=== PATIENT | female | born 1935 | race Caucasian/White ===

== ENCOUNTER 2018-07-05 13:43 | Emergency (ER) | payer MEDICARE ==
--- NOTE | 2018-07-05 16:09 | RAD ---
RADIOGRAPH CHEST 2 VIEWS: 07/05/18 HISTORY: 82-year-old female with cough. FINDINGS: The thoracic aorta is tortuous and ectatic. There is no evidence of air space density, pneumothorax, or pulmonary edema. There is no cardiomegaly or pleural effusion. IMPRESSION: 1) No acute cardiopulmonary findings. 2) Ectasia of thoracic aorta. darryl [] POS: [facility]
== END 2018-07-05 15:14 | disposition home or self-care (01) ==
LOC: NAV ERS 13:43
DX: J20.9 Acute bronchitis, unspecified (principal); E78.5 Hyperlipidemia, unspecified; I10 Essential (primary) hypertension
CPT/HCPCS: 71046

== ENCOUNTER 2022-09-03 13:00 | Emergency (ER) | payer MEDICARE ==
[2022-09-03] MEDS ORDERED: methylPREDNISolone Acetate 40 mg/ml Vial ONE ×2 (13:38→14:04)
[2022-09-03 13:59] LABS: #Eosinphils 0.1 thou/uL (0.0-0.7); #Monocytes 0.7 thou/uL (0.11-0.59); #Neutrophils 4.6 thou/uL (1.40-6.50); %Basophils 0.5 % (0.0-1.0); %Eosinophils 1.2 % (0.0-10.0); %Lymphocytes 35.3 % (21.0-51.0); %Monocytes 7.9 % (0.0-10.0); %Neutrophils 55.1 % (42.0-75.0); Hemoglobin 14.1 g/dL (12.0-16.0); Mean Corpuscular HGB CONC 32.1 g/dL (32.0-36.0); Mean Corpuscular Hemoglobin 29.2 pg (27.0-31.0); Platelet Count 148 10x3/uL (130-400); RBC Distribution Width 12.5 % (11.5-14.5); Red Blood Cell (RBC) Count 4.84 mill/uL (4.20-5.40); White Blood Cell (WBC) Count 8.4 10x3/uL (4.8-10.8)
[2022-09-03 14:21] LABS: Anion Gap 14 mmol/L (10-20); BUN (Urea Nitrogen) 15 mg/dL (9.8-20.1); Calc. Creatinine Clearance 0 mL/min (70-130); Calcium 9.9 mg/dL (7.8-10.44); Carbon Dioxide 24 mmol/L (23-31); Chloride 105 mmol/L (98-107); Estimated GFR 68; Glucose 129 mg/dL (83-110); Potassium 4.2 mmol/L (3.5-5.1); Sodium 139 mmol/L (136-145)
== END 2022-09-03 15:15 | disposition home or self-care (01) ==
LOC: NAV ERS 13:00
DX: M19.031 Primary osteoarthritis, right wrist (principal); I10 Essential (primary) hypertension; E78.00 Pure hypercholesterolemia, unspecified; E11.40 Type 2 diabetes mellitus with diabetic neuropathy, unspecified; Z79.84 Long term (current) use of oral hypoglycemic drugs; Z79.899 Other long term (current) drug therapy
CPT/HCPCS: 80048; 84550; 85025; 96372; J1030

== ENCOUNTER 2022-09-19 17:56 | Emergency (ER) | payer OTHER, MEDICARE ==
[2022-09-19 18:44] LABS: #Basophils 0.1 thou/uL (0.0-0.2); #Eosinphils 0.1 thou/uL (0.0-0.7); #Lymphocytes 2.8 thou/uL (1.20-3.40); #Monocytes 0.6 thou/uL (0.11-0.59); #Neutrophils 7.1 thou/uL (1.40-6.50); %Basophils 0.9 % (0.0-1.0); %Eosinophils 0.8 % (0.0-10.0); %Monocytes 5.8 % (0.0-10.0); %Neutrophils 66.6 % (42.0-75.0); Hemoglobin 14.3 g/dL (12.0-16.0); Mean Corpuscular HGB CONC 31.8 g/dL (32.0-36.0); Mean Corpuscular Hemoglobin 29.6 pg (27.0-31.0); Mean Corpuscular Volume 93.1 fl (78.0-98.0); Mean Platelet Volume 14.6 fL (7.4-10.4); Platelet Count 146 10x3/uL (130-400); RBC Distribution Width 13.1 % (11.5-14.5); Red Blood Cell (RBC) Count 4.84 mill/uL (4.20-5.40); White Blood Cell (WBC) Count 10.6 10x3/uL (4.8-10.8)
[2022-09-19] MEDS ORDERED: HYDROcodone/Acetaminophen 5/325 mg Tablet ONE (18:58)
[2022-09-19] MEDS ORDERED: Boostrix 0.5 ML (Tdap) VIAL (>/=7 yrs of age) ONE (18:58)
[2022-09-19 19:01] LABS: Anion Gap 17 mmol/L (10-20); BUN (Urea Nitrogen) 16 mg/dL (9.8-20.1); Calc. Creatinine Clearance 0 mL/min (70-130); Calcium 10.2 mg/dL (7.8-10.44); Carbon Dioxide 27 mmol/L (23-31); Chloride 103 mmol/L (98-107); Estimated GFR 68; Glucose 172 mg/dL (83-110); Magnesium 1.9 mg/dL (1.6-2.6); Potassium 4.5 mmol/L (3.5-5.1); Sodium 142 mmol/L (136-145)
[2022-09-19 19:25] LABS: Bilirubin Negative (Negative); Blood, Urine Negative (Negative); Clarity Clear (Clear); Glucose, Urine (Dipstick) Negative (Negative); Ketone, Urine 40 mg/dL (Negative); Leukocyte Trace (Negative); Nitrite Negative (Negative); Protein, Urine (Dipstick) Negative (Neg-Trace); Urobilinogen 0.2 mg/dL (Less than 2)
[2022-09-19 19:36] LABS: Squamous Epithelial 0-3 HPF (0-3); WBC/HPF 0-3 HPF (0-3)
== END 2022-09-19 20:14 | disposition home or self-care (01) ==
LOC: NAV ERS 17:56
DX: S06.9X1A Unspecified intracranial injury with loss of consciousness of 30 minutes or less, initial encounter (principal); S00.03XA Contusion of scalp, initial encounter; I10 Essential (primary) hypertension; E78.00 Pure hypercholesterolemia, unspecified; E11.40 Type 2 diabetes mellitus with diabetic neuropathy, unspecified; W18.00XA Striking against unspecified object with subsequent fall, initial encounter; Y92.512 Supermarket, store or market as the place of occurrence of the external cause; Z85.3 Personal history of malignant neoplasm of breast; Z79.84 Long term (current) use of oral hypoglycemic drugs; Z79.899 Other long term (current) drug therapy
CPT/HCPCS: 70450; 72125; 80048; 81003; 81015; 83735; 84484; 85025; 90471; 90715; 93005

== ENCOUNTER 2022-10-11 19:55 | Emergency (ER) | payer MEDICARE ==
[2022-10-11] MEDS ORDERED: Acetaminophen/Codeine 30-300mg Tablet ONE (20:20)
== END 2022-10-11 21:20 | disposition home or self-care (01) ==
LOC: NAV ERS 19:55
DX: S20.211A Contusion of right front wall of thorax, initial encounter (principal); I10 Essential (primary) hypertension; E78.00 Pure hypercholesterolemia, unspecified; E11.9 Type 2 diabetes mellitus without complications; Z79.84 Long term (current) use of oral hypoglycemic drugs; Z79.899 Other long term (current) drug therapy; W19.XXXA Unspecified fall, initial encounter

== ENCOUNTER 2022-10-22 13:03 | Outpatient (CLI) | payer MEDICARE | END 2022-10-22 13:04 | disposition home or self-care (01) | LOC: NAV CT 13:03 | PROVIDERS: ATTEND Nurse Practitioner Family | DX: R10.31 Right lower quadrant pain (principal) | CPT/HCPCS: 74176 ==

== ENCOUNTER 2022-10-22 16:39 | Emergency (ER) | payer MEDICARE ==
[2022-10-22] MEDS ORDERED: Lidocaine 2% Jelly 5 ML TUBE ONE (17:23)
[2022-10-22] MEDS ORDERED: Lidocaine 4% Cream 5 GM TUBE w/ Tegaderm ONE (17:23)
== END 2022-10-22 17:47 | disposition home or self-care (01) ==
LOC: NAV ERS 16:39
DX: S70.01XA Contusion of right hip, initial encounter (principal); S00.01XA Abrasion of scalp, initial encounter; E78.00 Pure hypercholesterolemia, unspecified; I10 Essential (primary) hypertension; E11.42 Type 2 diabetes mellitus with diabetic polyneuropathy; Z79.899 Other long term (current) drug therapy; Z79.84 Long term (current) use of oral hypoglycemic drugs; W22.8XXA Striking against or struck by other objects, initial encounter; W18.30XA Fall on same level, unspecified, initial encounter; Y92.009 Unspecified place in unspecified non-institutional (private) residence as the place of occurrence of the external cause
CPT/HCPCS: 70450; 74176